=== PATIENT | female | born 1995 | race Caucasian/White ===

== ENCOUNTER → 2018-02-19 | Day surgery (SDC) | payer OTHER ==
--- NOTE | 2018-02-19 13:54 | RADIOLOGY REPORT (SQ) ---
EXAM DESCRIPTION: ARTHRO WRIST INJECTION; FLUORO/NEEDLE PLACEMENT COMPLETED DATE/TIME: 02/19/2018 1:37 pm REASON FOR STUDY: DISLOCATION OF DISTAL RADIOULNAR JOINT OF RIGHT WRIST, INIT S63.014A DISLOCATION OF DISTAL RADIOULNAR JOINT OF RIGHT WRI COMPARISON: None. FLUOROSCOPY TIME: 6 seconds 1 digital radiographic images saved to PACS. LIMITATIONS: None. PROCEDURE: Procedure, risks, benefits and alternatives explained to patient who then gave written co nsent. The dorsal right wrist was marked and a time-out was called for correct marking verification. Radiocarpal site marked using fluoroscopic guidance. Wrist prepped and draped using sterile techniq ue. Local anesthesia achieved using 1 mL of 1% lidocaine injection. 25 gauge needle introduced into the joint space under direct fluoroscopic visualization. Non-ionic contrast instilled to confirm int ra-articular position. Dilute gadolinium solution then injected. Needle removed and entry site cover ed with sterile bandage. No immediate complications noted. TECHNIQUE: Digital images acquired during fluoroscopy and stored on PACS. Patient immediately take n to the MR suite for additional imaging. INJECTION LOCATION: Right radioscaphoid joint CONTRAST TYPE AND AMOUNT: 0.25 mL of Omnipaque 300 was injected to confirm intra-articular needle yvrose cement. This was followed by 2 mL of dilute Dotarem/Saline mixture. IMPRESSION: SUCCESSFUL NEEDLE PLACEMENT AND INJECTION FOR RIGHT WRIST MR ARTHROGRAM. COMMENT: Quality ID #145: Final reports for procedures using fluoroscopy that document radiation exp osure indices, or exposure time and number of fluorographic images (if radiation exposure indices are not available) TECHNICAL DOCUMENTATION: JOB ID: [id number] [employer]- All Rights Reserved Reading location - IP/workstation name: [facility]
--- NOTE | 2018-02-19 13:54 | RADIOLOGY REPORT (SQ) ---
EXAM DESCRIPTION: ARTHRO WRIST INJECTION; FLUORO/NEEDLE PLACEMENT COMPLETED DATE/TIME: 02/19/2018 1:37 pm REASON FOR STUDY: DISLOCATION OF DISTAL RADIOULNAR JOINT OF RIGHT WRIST, INIT S63.014A DISLOCATION OF DISTAL RADIOULNAR JOINT OF RIGHT WRI COMPARISON: None. FLUOROSCOPY TIME: 6 seconds 1 digital radiographic images saved to PACS. LIMITATIONS: None. PROCEDURE: Procedure, risks, benefits and alternatives explained to patient who then gave written co nsent. The dorsal right wrist was marked and a time-out was called for correct marking verification. Radiocarpal site marked using fluoroscopic guidance. Wrist prepped and draped using sterile techniq ue. Local anesthesia achieved using 1 mL of 1% lidocaine injection. 25 gauge needle introduced into the joint space under direct fluoroscopic visualization. Non-ionic contrast instilled to confirm int ra-articular position. Dilute gadolinium solution then injected. Needle removed and entry site cover ed with sterile bandage. No immediate complications noted. TECHNIQUE: Digital images acquired during fluoroscopy and stored on PACS. Patient immediately take n to the MR suite for additional imaging. INJECTION LOCATION: Right radioscaphoid joint CONTRAST TYPE AND AMOUNT: 0.25 mL of Omnipaque 300 was injected to confirm intra-articular needle yvrose cement. This was followed by 2 mL of dilute Dotarem/Saline mixture. IMPRESSION: SUCCESSFUL NEEDLE PLACEMENT AND INJECTION FOR RIGHT WRIST MR ARTHROGRAM. COMMENT: Quality ID #145: Final reports for procedures using fluoroscopy that document radiation exp osure indices, or exposure time and number of fluorographic images (if radiation exposure indices are not available) TECHNICAL DOCUMENTATION: JOB ID: [id number] [employer]- All Rights Reserved Reading location - IP/workstation name: [email or web address]
--- NOTE | 2018-02-19 15:12 | RADIOLOGY REPORT (SQ) ---
EXAM DESCRIPTION: MRI RT UPPER JOINT WITH COMPLETED DATE/TIME: 02/19/2018 2:49 pm REASON FOR STUDY: DISLOCATION OF DISTAL RADIOULNAR JOINT OF RIGHT WRIST, INIT S63.014A DISLOCATION OF DISTAL RADIOULNAR JOINT OF RIGHT WRI COMPARISON: None. TECHNIQUE: Right wrist post-arthrogram imaging includes T1 and T1 and T2 fat sat sequences. LIMITATIONS: None. FINDINGS: JOINT DISTENSION: Adequate. No loose body. There is some extravasation of contrast relat ed to volume of injection into the soft tissues at the radioscaphoid joint dorsally. This is artifac t from arthrogram technique. BONE MARROW: No alteration of signal to suggest marrow replacement or edema. No occult fracture. No l arge osteophytes. CARPAL ALIGNMENT AND ARTICULATION: Normal congruity of sigmoid notch at level of distal ruj without p ositive or negative ulnar variance. Normal capitolunate angle. No widening of scapholunate articulati on. SCAPHOLUNATE LIGAMENT: Without tear. No contrast in middle carpal compartment. LUNATO-TRIQUETRAL LIGAMENT: Without tear. No contrast in middle carpal compartment. TFC COMPLEX: Radial and ulnar attachments normal. Meniscus intact. Extensor carpi ulnaris tendon norm al without tendinopathy. No contrast in distal RUJ. There is a ganglion cyst, 1.4 x 0.9 cm in size p rotruding off the palmar aspect of the wrist joint at the fusiform synovial recess, best shown on sag ittal image 14, axial images 15-19, and coronal fat-sat T1 image 10 EXTRINSIC LIGAMENTS AND DISTAL RADIO-ULNAR JOINT: Dorsal and volar distal RUJ ligaments intact withou t subluxation of the distal ulna with respect to the radius. 1-6 EXTENSOR COMPARTMENTS: Normal. Specifically no tendinopathy of the abductor pollicis longus or ex tensor pollicis brevis to suggest de Quervains syndrome. CARPAL TUNNEL AND MEDIAN NERVE: Normal volume and morphology of carpal tunnel proximal at the level o f the radiocarpal joint and distally at the hook of the hamate. No thickening or signal alteration of median nerve. OTHER: No other significant finding. IMPRESSION: Tiny defect in the joint capsule with leakage of arthrogram contrast into the soft tissu es along the ulnar palmar aspect of the joint, with early ganglion cyst formation TECHNICAL DOCUMENTATION: JOB ID: [id number] [employer]- All Rights Reserved Reading location - IP/workstation name: [email or web address]
== END ==
LOC: RAD 12:43
PROVIDERS: ATTEND Orthopaedic Surgery
DX: S63.014A Dislocation of distal radioulnar joint of right wrist, initial encounter (principal); X58.XXXA Exposure to other specified factors, initial encounter
CPT/HCPCS: 73222; 25246; 77002; A9576

== ENCOUNTER 2018-03-25 07:05 | Day surgery (SDC) | payer OTHER ==
[2018-03-18 09:41] LABS: HEMATOCRIT 39.5 % (36.0-47.0); HEMOGLOBIN 13.4 g/dL (12.0-15.5); MEAN CORPUSCULAR HEMOGLOBIN 25.8 pg (27.0-33.4); MEAN CORPUSCULAR HGB CONC 34.1 g/dL (32.0-36.0); MEAN CORPUSCULAR VOLUME 76 fl (80-97); PLATELET COUNT 198 10^3/uL (150-450); RED BLOOD COUNT 5.22 10^6/uL (3.72-5.28); RED CELL DISTRIBUTION WIDTH 15.1 % (11.5-14.0); WHITE BLOOD COUNT 5.9 10^3/uL (4.0-10.5)
[2018-03-18 09:45] LABS: APPEARANCE,URINE SLIGHTLY-CLOUDY; BILIRUBIN,URINE NEGATIVE (NEGATIVE); COLOR,URINE YELLOW; GLUCOSE, URINE NEGATIVE (NEGATIVE); KETONES,URINE NEGATIVE (NEGATIVE); LEUKOCYTE ESTERASE,URINE TRACE (NEGATIVE); NITRITE,URINE NEGATIVE (NEGATIVE); PROTEIN,URINE NEGATIVE (NEGATIVE); URINE SPECIFIC GRAVITY 1.023
[2018-03-18 10:09] LABS: ANION GAP 11 (5-19); BLOOD UREA NITROGEN 12 mg/dL (7-20); CALCIUM 9.7 mg/dL (8.4-10.2); CARBON DIOXIDE 26 mmol/L (22-30); CHLORIDE 103 mmol/L (98-107); GLUCOSE 85 mg/dL (75-110); POTASSIUM 4.4 mmol/L (3.6-5.0); SODIUM 139.9 mmol/L (137-145)
[~2018-03-25 07:05] MED LIST: CEFAZOLIN 2 GM/D5W RTU 2 GM/50 ML RTUPB IV PRN; LACTATED RINGERS 1000 ML IV PRN; LIDOCAINE 0.5% INJ-PF (5 MG/ML) 50 ML SDV SUBCUT PRN
[2018-03-25] MEDS ORDERED: CEFAZOLIN 2 GM/D5W RTU 2 GM/50 ML RTUPB IV ONE (07:16)
[2018-03-25] MEDS ORDERED: BUPIVACAINE HCL 0.5 % INJ/PF 30 ML SDV ONE (07:50)
[2018-03-25] MEDS ORDERED: LIDOCAINE 1% INJ-PF (10 MG/ML) 30 ML SDV ONE (07:50)
[2018-03-25] MEDS ORDERED: MIDAZOLAM 2 MG/2 ML INJ ONE (08:11)
[2018-03-25] MEDS ORDERED: ONDANSETRON HCL INJ/PF 4 MG/2 ML SDV ONE (08:12)
[2018-03-25] MEDS ORDERED: HYDROMORPHONE HCL INJ/PF 2 MG/ML AMPULE ONE (08:12)
[2018-03-25] MEDS ORDERED: EPHEDRINE SULFATE INJ 50 MG/1 ML AMPULE ONE (08:12)
[2018-03-25] MEDS ORDERED: PROPOFOL INJ 200 MG/20 ML VIAL IV ONE (08:12)
[2018-03-25] MEDS ORDERED: FENTANYL CITRATE INJ/PF 100 MCG/2 ML AMPUL IV PRN ×3 (11:07)
[2018-03-25] MEDS ORDERED: PROMETHAZINE HCL INJ 25 MG/1 ML VIAL IV PRN (11:07)
[2018-03-25] MEDS ORDERED: MEPERIDINE HCL/PF INJ 25 MG/1 ML DISP.SYRIN IV PRN (11:07)
[2018-03-25] MEDS ORDERED: DIPHENHYDRAMINE HCL 50 MG/ML VIAL IV PRN (11:07)
[2018-03-25] MEDS ORDERED: MEPERIDINE HCL/PF INJ 25 MG/1 ML DISP.SYRIN ONE (12:37)
--- NOTE | 2018-03-25 12:43 | Operative Report ---
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 The patient's fracture healed appropriately however she continued to have persistent DRUJ instability. MRI demonstrated TFCC disruption at that point we discussed treatment options including operative versus nonoperative intervention. Risks and benefits were explained patient verbalized understanding consented for the procedure. Procedure In Detail: Patient was seen and evaluated in the preoperative holding area. The upper extremity was initialized and marked. Patient received 2g of Ancef IV for bacterial prophylaxis. Patient was taken back to the operative room where transferred to the operative table and placed under general anesthesia. Once they were adequately anesthetized a nonsterile tourniquet was placed on the upper extremity. A surgical team debriefing was performed ensuring all instrumentation was available, the surgical procedure was discussed with possible concerns reviewed. The upper extremity was prepped with chlorhexidine and alcohol and draped in a sterile fashion. A timeout was done identifying correct patient, procedure and extremity everyone in attendance agree with this and verbalized no concerns. Patient was placed in the Acumed wrist distraction device with 15 pounds of traction. The extremity was exsanguinated the tourniquet was inflated to 250 mmHg. Longitudinal skin incision was made over the 3-4 portal and the arthroscope was introduced in the radiocarpal joint. Dry arthroscopy demonstrated intact short radial lunate and long radiolunate ligaments. No evidence of disruption of the radius scaphoid capitate ligament. No evidence of degeneration along the scaphoid or lunate facet. Scapholunate ligament remained intact without evidence of disruption. A 4-5 portal was then established via triangulation. Probe was then entered which demonstrated foveal disruption of the TFCC. There was evidence of synovitis along the prestyloid recess and a partial synovectomy was performed with an ablator. A midcarpal radial portal was then established and arthroscope introduced into the midcarpal joint, midcarpal ulnar portal was established. Inspection of the scapholunate and lunotriquetral intervals demonstrate no evidence of widening or instability. Given the gross medications DRUJ instability decision was made to proceed with TFCC repair. Longitudinal skin incision was made just volar to the ECU tendon. Blunt dissection was performed. Branches of the dorsal ulnar sensory nerve were identified and retracted the sixth dorsal compartment was then elevated maintaining integrity of the sub-sheath. The capsule of the ulnocarpal joint was then longitudinally split to expose the ulnar styloid and TFCC. TFCC was then identified with disruption as confirmed with arthroscopy. A 2-0 FiberWire suture was then placed in a Blayne-Robert type configuration each limb was brought on either side of the ulnar styloid and then placed proximally in the ulnar shaft with a 2.9 mm push lock anchor. During placement within the push lock anchor each suture line was tensioned along the styloid and the wrist placed in full supination. This did improve patient's residual DRUJ instability. The ulnocarpal capsule was then closed with interrupted 2-0 Ethibond suture. The deep tissue of the sixth dorsal compartment was reapproximated with the ulnocarpal capsule which further provided DRUJ stability. C-arm fluoroscopy was obtained which demonstrated no evidence of DRUJ malalignment and neutral ulnar variance. Wound was irrigated with normal saline. Any peripheral veins were coagulated with bipolar cautery. Skin incisions were closed with subcuticular 4-0 Monocryl reinforced with Dermabond and Steri-Strips. 20 cc of 0.5% Marcaine without epinephrine was injected for postoperative pain control. Sponge counts, instrument counts, needle counts counts were correct. Patient was then awoken from anesthesia. Transferred from the operating room table to the operating room stretcher. There was no intraoperative complications patient tolerated procedure well stable to PACU. Postoperative plan: Patient will follow-up the office in 2 weeks at which point she will be transitioned to a long-arm cast. 4 weeks postoperatively patient will be switched from a long-arm cast to a [place] brace in occupational therapy.
[2018-03-25 14:13] VITALS: BP 111/70
--- NOTE | 2018-03-25 14:18 | RADIOLOGY REPORT (SQ) ---
EXAM DESCRIPTION: NO CHG FLUORO; WRIST RIGHT 2 VIEWS COMPLETED DATE/TIME: 03/25/2018 2:08 pm REASON FOR STUDY: RIGHT WRIST ARTHROSCOPY REPAIR/RECON ASST WITH FLUORO IN OR S63.014A DISLOCATION OF DISTAL RADIOULNAR JOINT OF RIGHT WRI S52.531A COLLES' FRACTURE OF RIGHT RADIUS, INIT FOR CLOS FX COMPARISON: None. FLUOROSCOPY TIME: 8 seconds. 2 images saved to PACS. TECHNIQUE: Intra-operative images acquired during surgical procedure to evaluate progress. NUMBER OF IMAGES: 2 images. LIMITATIONS: None. FINDINGS: Images of the wrist acquired during procedure. IMPRESSION: IMAGE(S) OBTAINED DURING PROCEDURE. COMMENT: Quality ID 145: Final reports for procedures using fluoroscopy that document radiation exp osure indices, or exposure time and number of fluorographic images (if radiation exposure indices are not available) Please consult full operative report of the attending physician for description of the procedure. TECHNICAL DOCUMENTATION: JOB ID: [id number] [employer]- All Rights Reserved Reading location - IP/workstation name: [email or web address]
--- NOTE | 2018-03-25 14:18 | RADIOLOGY REPORT (SQ) ---
EXAM DESCRIPTION: NO CHG FLUORO; WRIST RIGHT 2 VIEWS COMPLETED DATE/TIME: 03/25/2018 2:08 pm REASON FOR STUDY: RIGHT WRIST ARTHROSCOPY REPAIR/RECON ASST WITH FLUORO IN OR S63.014A DISLOCATION OF DISTAL RADIOULNAR JOINT OF RIGHT WRI S52.531A COLLES' FRACTURE OF RIGHT RADIUS, INIT FOR CLOS FX COMPARISON: None. FLUOROSCOPY TIME: 8 seconds. 2 images saved to PACS. TECHNIQUE: Intra-operative images acquired during surgical procedure to evaluate progress. NUMBER OF IMAGES: 2 images. LIMITATIONS: None. FINDINGS: Images of the wrist acquired during procedure. IMPRESSION: IMAGE(S) OBTAINED DURING PROCEDURE. COMMENT: Quality ID 145: Final reports for procedures using fluoroscopy that document radiation exp osure indices, or exposure time and number of fluorographic images (if radiation exposure indices are not available) Please consult full operative report of the attending physician for description of the procedure. TECHNICAL DOCUMENTATION: JOB ID: [id number] [employer]- All Rights Reserved Reading location - IP/workstation name: [email or web address]
--- NOTE | 2018-03-28 20:23 | Discharge Summary ---
Discharge Summary (SDC) - Discharge Final Diagnosis: Right wrist TFCC tear, DRUJ instability Date of Surgery: 03/25/18 Discharge Date: 03/25/18 Condition: Good Treatment or Instructions: Schedule Follow Up w/ Dr. Jonny Su @ [facility] to be seen in 10-14 days or as scheduled [place]: [place]: Novice: Ice and elevate Keep splint clean/dry/intact. If your fingers become numb please unwrap the Tylor wrap but leave the splint in place, if the sensation does not return within 30 minutes please return to the emergency department. May begin finger range of motion attempting to make full fist. Please use ibuprofen (Motrin or Advil) 600-800 mg every 8 hours as needed for pain or fever DO NOT TAKE w/ TORADOL may use once TORADOL complete. You may also use acetaminophen (Tylenol) 1000 mg every 4-6 hours as needed for pain or fever. Please be aware that many medications contain acetaminophen, do not exceed a total of 1000 mg of acetaminophen every 6 hours. If ibuprofen and acetaminophen are not sufficient for your pain you may take the Percocet/Imbler. Please be aware that the Percocet/Imbler does contain Tylenol. Stool softener of choice when on pain medication. Prescriptions: Oxycodone HCl/Acetaminophen [Percocet 5-325 mg Tablet] 1 tab PO Q6 PRN #25 tab PRN Reason: Referrals: DG WATKINS MD [Primary Care Provider] - Discharge Diet: As Tolerated Respiratory Treatments at Home: Deep Breathing/Coughing Discharge Activity: No Lifting Over 10 Pounds, No Lifting/Push/Pulling Report the Following to Your Physician Immediately: Fever over 101 Degrees, Unusual Bleeding, Redness, Swelling, Warmth
== END 2018-03-25 14:14 | disposition home or self-care (01) ==
LOC: OROUT 07:05
PROVIDERS: ATTEND Orthopaedic Surgery
DX: M25.331 Other instability, right wrist (principal); M65.831 Other synovitis and tenosynovitis, right forearm; S63.014A Dislocation of distal radioulnar joint of right wrist, initial encounter; S52.531A Colles' fracture of right radius, initial encounter for closed fracture; X58.XXXA Exposure to other specified factors, initial encounter; M25.531 Pain in right wrist; F17.210 Nicotine dependence, cigarettes, uncomplicated; Z79.899 Other long term (current) drug therapy; Z22.322 Carrier or suspected carrier of Methicillin resistant Staphylococcus aureus
CPT/HCPCS: 36415; 85027; 81025; 80048; 81001; 73100; 25107; 29844; C1713 ×2; J2250; J3490; J2175; J1170; J2405; J2704; J0690; 01830